=== PATIENT | male | born 1990 | race Caucasian/White ===

== ENCOUNTER → 2016-11-05 | Outpatient (REF) | payer OTHER ==
[2016-11-05 11:16] LABS: SPERM ABNORMAL FORMS OTHER (SPECIFIY)
[2016-11-05 11:17] LABS: % NORMAL FORMS 7 % (>=4); IMMOTILITY 48 %; NON PROGRESSIVE MOTILITY (c) 19 %; PROGRESSIVE MOTILITY (a) 33 % (>=32); SPERM# 69.2 M/Ejac (33-46); TOTAL FUNCTIONAL 3.7 M/Ejac.; TOTAL MOTILITY 52 % (>=40); TOTAL PROGRESSIVE SPERM 22.9 M/Ejac.
== END ==
LOC: M LAB REF 11:02
PROVIDERS: ATTEND Physician Assistant
DX: Z31.41 Encounter for fertility testing (principal)

== ENCOUNTER → 2016-11-12 | Outpatient (REF) | payer OTHER ==
[2016-11-12 12:18] LABS: PROGRESSIVE MOTILITY (a) 25 % (>=32)
[2016-11-12 12:19] LABS: % NORMAL FORMS 5 % (>=4); IMMOTILITY 65 %; NON PROGRESSIVE MOTILITY (c) 10 %; TOTAL FUNCTIONAL 4.2 M/Ejac.; TOTAL MOTILITY 35 % (>=40); TOTAL PROGRESSIVE SPERM 32.9 M/Ejac.
== END ==
LOC: M LAB REF 12:09
PROVIDERS: ATTEND Physician Assistant
DX: Z31.41 Encounter for fertility testing (principal)